=== PATIENT | female | born 1980 | race Caucasian/White ===

== ENCOUNTER 2016-08-01 17:22 | Emergency (ER) | payer BC | END 2016-08-01 18:22 | disposition left against medical advice (07) | LOC: UCCORT 17:22 | DX: Z53.21 Procedure and treatment not carried out due to patient leaving prior to being seen by health care provider (principal); K13.70 Unspecified lesions of oral mucosa ==

== ENCOUNTER 2018-11-09 20:43 | Emergency (ER) | payer BC ==
[2018-11-09 20:56] VITALS: BP 109/72
--- NOTE | 2018-11-09 21:12 | UC ---
Throat Pain/Nasal Lucian HPI - HPI Summary HPI Summary: Ill for just 2 days. Son at home with strep throat. - History of Current Complaint Chief Complaint: UCRespiratory Stated Complaint: SORE THROAT Time Seen by Provider: 11/09/18 20:54 Hx Obtained From: Patient Hx Last Menstrual Period: 11/08/18 Onset/Duration: Gradual Onset Severity: Mild Pain Intensity: 3 Cough: None Associated Signs & Symptoms: Positive: Negative - Allergies/Home Medications Allergies/Adverse Reactions: Allergies Allergy/AdvReac Type Severity Reaction Status Date / Time No Known Allergies Allergy Verified 11/09/18 20:53 Home Medications: Home Medications NK [No Home Medications Reported] 11/09/18 [History Confirmed 11/09/18] PMH/Surg Hx/FS Hx/Imm Hx Previously Healthy: Yes - Surgical History Surgical History: Yes Surgery Procedure, Year, and Place: t/a at age 8 yrs. 10/2008 - Family History Known Family History: Positive: None - Social History Lives: With Family Alcohol Use: Rare Substance Use Type: None Smoking Status (MU): Never Smoked Tobacco Review of Systems All Other Systems Reviewed And Are Negative: Yes ENT: Positive: Sore Throat Is Patient Immunocompromised?: No Physical Exam Triage Information Reviewed: Yes Appearance: Well-Appearing, No Pain Distress, Well-Nourished Vital Signs: Initial Vital Signs Temp 97.5 F 11/09/18 20:54 Pulse 82 11/09/18 20:54 Resp 16 11/09/18 20:54 BP 109/72 11/09/18 20:54 Pulse Ox 100 11/09/18 20:54 Vital Signs Reviewed: Yes Eye Exam: Normal ENT: Positive: Normal ENT inspection, Hearing grossly normal, Pharynx normal, TMs normal, Uvula midline. Negative: Tonsillar swelling, Tonsillar exudate, Trismus, Muffled voice, Hoarse voice Neck: Positive: Supple, Nontender, No Lymphadenopathy Respiratory: Positive: Lungs clear, Normal breath sounds, No respiratory distress, No accessory muscle use Cardiovascular: Positive: RRR, No Murmur, Pulses Normal, Brisk Capillary Refill Abdominal Exam: Normal Abdomen Description: Positive: Nontender, No Organomegaly, Soft Bowel Sounds: Positive: Present Musculoskeletal Exam: Normal Neurological Exam: Normal Psychological Exam: Normal Skin Exam: Normal Throat Pain/Nasal Course/Dx - Course Course Of Treatment: Rapid strep test negative - Differential Dx/Diagnosis Provider Diagnosis: Pharyngitis Discharge - Sign-Out/Discharge Documenting (check all that apply): Patient Departure All imaging exams completed and their final reports reviewed: No Studies - Discharge Plan Condition: Good Disposition: HOME Patient Education Materials: Pharyngitis (ED) Referrals: Lacey Aguilar [Primary Care Provider] - Additional Instructions: Recheck in 4-5 days if no improvement. Tylenol as directed for fever, warm, salt water gargles, throat lozenges. - Billing Disposition and Condition Condition: GOOD Disposition: Home
== END 2018-11-09 21:15 | disposition home or self-care (01) ==
LOC: UCCORT 20:43
DX: J02.9 Acute pharyngitis, unspecified (principal)
CPT/HCPCS: 87651; 99211; G0463

== ENCOUNTER 2019-07-10 09:16 | Emergency (ER) | payer BC ==
[2019-07-10 09:28] VITALS: BP 116/71
--- NOTE | 2019-07-10 09:58 | UC ---
Throat Pain/Nasal Lucian HPI - HPI Summary HPI Summary: Patient presents to urgent care reporting cough and congestion for 2 weeks. Patient is a last 3 days she has had increased pain and pressure on her right facial area. Patient states her teeth ache. Patient reports positive popping or fullness in her right ear. Patient has taken [id number] cough and cold medication with little improvement. Patient denies fevers but has fatigue. Patient continues to have a cough but states it's improving. No sore throat. 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 Patient's medications is entered in the EMR reviewed this visit. Patient states she is not . - History of Current Complaint Chief Complaint: UCGeneralIllness Stated Complaint: SINUS COMPLAINT Time Seen by Provider: 07/10/19 09:33 Hx Obtained From: Patient Hx Last Menstrual Period: 06/23/19 Onset/Duration: Gradual Onset Severity: Mild Pain Intensity: 4 Pain Scale Used: 0-10 Numeric - Allergies/Home Medications Allergies/Adverse Reactions: Allergies Allergy/AdvReac Type Severity Reaction Status Date / Time No Known Allergies Allergy Verified 07/10/19 09:24 Home Medications: Home Medications Phenylephrine/Dm/Acetaminop/GG [Tylenol Cold-Flu Severe Caplet] 1 tab PO ONCE [History Confirmed 07/10/19] PMH/Surg Hx/FS Hx/Imm Hx Previously Healthy: Yes - Surgical History Surgical History: Yes Surgery Procedure, Year, and Place: t/a at age 8 yrs. 10/2008. d&c 2007 - Family History Known Family History: Positive: Non-Contributory - Social History Occupation: Employed Full-time Lives: With Family Alcohol Use: Rare Substance Use Type: None Smoking Status (MU): Never Smoked Tobacco Review of Systems All Other Systems Reviewed And Are Negative: Yes Constitutional: Positive: Negative Skin: Positive: Negative Eyes: Positive: Negative ENT: Positive: Ear Ache, Nasal Discharge, Sinus Congestion, Sinus Pain/ Tenderness Respiratory: Positive: Cough Physical Exam - Summary Physical Exam Summary: Vital Signs Reviewed: Yes A+Ox3, no distress, congested, cough Eyes: Conjunctiva Clear, JOMAR. EOM intact and full ENT: Hearing grossly normal fluid right TM, no erythema left TM: no fluid, erythema cerumen in canal turbinates inflammed and boggy + PND + TTP maxillary sinus on right, mmoist, uvula midline, no exudate, no erythema Neck: Positive: Supple Respiratory: Positive: No respiratory distress, No accessory muscle use + CTA throughout no w/r Cardiovascular: RRR nl s1, s2 no m/r CBT <2 sec abd soft + BS nt/nd no guarding, no distension Musculoskeletal Exam: HURT x 4 without difficulty Strength Intact, ROM Intact Neurological: Positive: Alert, + sensation throughout Psychological: Positive: Normal Response To examiner Skin: Positive: no rash, no ecchymosis Triage Information Reviewed: Yes Vital Signs: Initial Vital Signs Temp 98.3 F 07/10/19 09:25 Pulse 93 07/10/19 09:25 Resp 18 07/10/19 09:25 BP 116/71 07/10/19 09:25 Pulse Ox 99 07/10/19 09:25 Throat Pain/Nasal Course/Dx - Course Course Of Treatment: Patient presents to urgent care reporting 2 weeks of congestion and cold. Patient says her last 3 days as focused in the right basilar sinus. Patient states pressure and pain. Patient reports when she blows her nose thick green sputum. Patient has taken sinus medication with short-term relief. Patient states her right ear feels full but not pain. Patient with fatigue. On exam vital signs are stable. Patient does have congestion. Patient fluid in the right ear turbinates are inflamed and boggy and exam consistent with sinusitis. Will start patient antibiotics. Motrin Tylenol. Flonase. Return precautions. Patient does have some cerumen or left canal. Offer patient irrigation and she declined at this time. Discussed with patient over-the- counter preparations for her. Patient planned. Discharge. - Differential Dx/Diagnosis Provider Diagnosis: Rhinosinusitis Discharge ED - Sign-Out/Discharge Documenting (check all that apply): Patient Departure All imaging exams completed and their final reports reviewed: No Studies - Discharge Plan Condition: Stable Disposition: HOME Prescriptions: Amoxicillin PO (*) [Amoxicillin 500 MG CAP*] 500 mg PO Q12H #20 cap Fluticasone NASAL SPRAY 50MCG* [Flonase NASAL SPRAY 50MCG*] 2 spray BOTH NARES DAILY #1 btl Patient Education Materials: Rhinosinusitis (DC) Referrals: Lacey Aguilar [Primary Care Provider] - Additional Instructions: - Stay well hydrated. Drink plenty of non-alcoholic, non-caffinated beverages. - Alternate ibuprofen (Advil, Motrin) 600mg and Tylenol every 3 hours for pain or fever. Take with food. Do NOT take for more than 4-5 days. - These infections are spread by secretions - do NOT share eating or drinking utensils - clean items you share with other people such as cell phones, computer mouse, TV remote, computer tablets,etc. Once you have been antibiotics for 2 days, change your toothbrush and your pillowcase. - get plenty of restful sleep - humidify the air in the room where you sleep - boil water, run a hot steam shower, vaporizer, cups of water by heat register - okay to take over the counter decongestant and cough medication - use nasal spray as prescribed - contact your doctor or return with questions or concerns - Billing Disposition and Condition Condition: STABLE Disposition: Home
== END 2019-07-10 10:12 | disposition home or self-care (01) ==
LOC: UCCORT 09:16
DX: J32.9 Chronic sinusitis, unspecified (principal); R05 Cough; H92.01 Otalgia, right ear
CPT/HCPCS: 99212; G0463